=== PATIENT | female | born 1940 | race Caucasian/White ===

== ENCOUNTER → 2022-12-20 10:54 | Outpatient (REF) | payer MEDICARE, OTHER, SELFPAY ==
--- NOTE | 2022-12-20 11:00 | CA_ITS ---
Transthoracic Echocardiogram Patient (Last, First, Middle): Nanci Baker, Gender: Female Date of : 1940 Age: 82 Procedure Date: 12/20/2022 Procedure Type: Transthoracic Echocardiogram Location: [place] Height: 154.94 cm Weight: 61.24 kg BSA: 1.60 m2 Heart Rate: 95 bpm BP: 130 / 85 mmHg Band Teacher: ROX Castellon MD: Atif Murrieta MD Termite Exterminator: Kong Meade MD Symptoms: I48.11 PER AF Study Quality: Adequate ECG Rhythm: Atrial Fibrillation Conclusions: - 1. Normal LV systolic function with LVEF of 55-60% 2. Mildly reduced RV systolic function by TAPSE 3. Moderately dilated left atrium 4. Mild mitral regurgitation 5. Mildly elevated right ventricular systolic pressure mildly elevated right atrial pressures 6. Trivial pericardial effusion Findings Left Ventricle Normal left ventricular size, thickness, and systolic function. The visually estimated ejection fraction is between 55-60%. Diastolic function is indeterminate on the basis of available data. Right Ventricle Normal right ventricular cavity size. There is mildly decreased right ventricular systolic function. Atria The left atrium is moderately dilated. There is no evidence of interatrial shunt. The right atrium is mildly dilated. Aortic Valve Normal aortic valve structure and function. There is no aortic valve stenosis. There is no aortic valve regurgitation. Mitral Valve There is mild anterior and posterior mitral leaflet thickening. There is mild mitral annular calcification. There is mild mitral valve regurgitation. There is no mitral valve stenosis. Pulmonic Valve The pulmonic valve is likely normal. There is trace pulmonic valve regurgitation. Tricuspid Valve Normal tricuspid valve structure. There is mild tricuspid valve regurgitation. Mildly elevated right atrial pressure. Mild pulmonary hypertension is present. Great Vessels All visible segments of the aorta are normal in size. The pulmonary artery was not well visualized. Venous The inferior vena cava is normal in size and collapses less than 50% with inspiration. Pericardium/Pleural There is a trivial loculated pericardial effusion overlying the right atrium. Prior Study Comparison No prior study available for comparison. Measurements 2D Linear Measurements IVSd: 1.05 0.6-0.9/0.6-1.0 cm LVIDd: 3.86 3.9-5.3/4.2-5.9 cm LVIDd Index: 2.41 2.4-3.2/2.2-3.1 cm/m2 LVIDs: 2.65 2.0-3.6 cm LVPWd: 1.04 0.7-1.1 cm LA Diam: 4.10 2.7-3.8/3.0-4.0 cm LAIDs Index: 2.56 1.5-2.3 cm/m2 LV Mass: 159.26 67-162/88-224 g LV Mass Index: 99.54 43-95/49-115 g/m2 LVOT Diam: 1.70 3.0+(-)1.3 cm 2D Systolic Function EF 4C: 52.10 >55% EF 2C: 61.80 >55% EF BiP: 57.60 >55% Mitral Valve MV Pk E: 1.22 MV Decel Time: 115.00 E'Lateral: 7.40 E'Medial: 7.72 E/E' Med: 15.80 E/E' Lat: 16.50 PHT: 34.00 MVA PHT: 6.47 Decel [place]: 10.62 Aortic Valve AoV Pk Vern: 1.32 AoV Mn Vern: 0.99 AoV VTI: 0.25 AoV Pk Grad: 7.00 Aov Mn Grad: 4.00 MARIANGEL Cont.VTI: 1.08 LVOT LVOT Pk Vern: 0.68 LVOT Mn Vern: 0.48 LVOT VTI: 0.12 LVOT Pk Grad: 2.00 LVOT Mn Grad: 1.00 LVOT Diam: 1.70 LVOT Area: 2.27 Diastolic Function MV Pk E: 1.22 E'Medial: 7.72 E/E' Med: 15.80 E' Laterial: 7.40 E/E' Lat: 16.50 Right Ventricle TAPSE (mm): 15.10 TVS' Vern: 11.00 Tricuspid Valve TR Pk Vern: 2.86 TR Pk Grad: 33.00 RA Press: 8.00 RVSP: 41.00 Great Vessels Aorta Sinus of Valsalva: 3.30 2.0-3.5 cm Ao Asc: 3.30 2.1-3.4 cm Pulmonary Valve PV Pk Vern: 0.92 Peak PV Grad: 3.00 Updated in Other Vendor System with Status of Final Kong Meade MD electronically signed on 12/20/2022 2:53:05 PM with status of Final
== END ==
LOC: HO.CARD 10:54
PROVIDERS: PCP Internal Medicine; Visit Provider Internal Medicine
DX: I48.11 Longstanding persistent atrial fibrillation (principal); R60.0 Localized edema
CPT/HCPCS: 93306